=== PATIENT | male | born 1970 | race African-American/Black ===

== ENCOUNTER 2022-08-26 19:54 | Inpatient (IN) | payer OTHER ==
[2022-08-26 20:33] LABS: #Eosinphils 0.1 thou/uL (0.0-0.7); #Lymphocytes 1.7 thou/uL (1.20-3.40); #Monocytes 0.5 thou/uL (0.11-0.59); #Neutrophils 4.7 thou/uL (1.40-6.50); %Basophils 0.6 % (0.0-1.0); %Eosinophils 1.4 % (0.0-10.0); %Lymphocytes 24.5 % (21.0-51.0); %Monocytes 6.5 % (0.0-10.0); %Neutrophils 66.9 % (42.0-75.0); Hemoglobin 14.8 g/dL (14.0-18.0); Mean Corpuscular HGB CONC 35.5 g/dL (32.0-36.0); Mean Corpuscular Hemoglobin 29.2 pg (27.0-31.0); Mean Corpuscular Volume 82.5 fl (78.0-98.0); Mean Platelet Volume 7.6 fL (7.4-10.4); Platelet Count 250 10x3/uL (130-400); RBC Distribution Width 13.7 % (11.5-14.5); Red Blood Cell (RBC) Count 5.06 mill/uL (4.70-6.10); White Blood Cell (WBC) Count 7.1 10x3/uL (4.8-10.8)
[2022-08-26 20:59] LABS: ALT (SGPT) 30 U/L (8-55); AST (SGOT) 34 U/L (5-34); Albumin 3.7 g/dL (3.5-5.0); Alkaline Phosphatase 147 U/L (40-110); Anion Gap 15 mmol/L (10-20); BUN (Urea Nitrogen) 18 mg/dL (8.4-25.7); Bilirubin, Total 0.3 mg/dL (0.2-1.2); CK (CPK) 275 U/L (30-200); Calc. Creatinine Clearance 0 mL/min (70-130); Calcium 8.6 mg/dL (7.8-10.44); Carbon Dioxide 22 mmol/L (22-29); Chloride 105 mmol/L (98-107); Estimated GFR 50; Globulin 3.6 g/dL (2.4-3.5); Glucose 223 mg/dL (70-105); Potassium 3.9 mmol/L (3.5-5.1); Protein, Total 7.3 g/dL (6.0-8.3); Sodium 138 mmol/L (136-145)
[2022-08-26] MEDS ORDERED: hydrALAZINE 20 MG/ML VIAL ONE (21:07)
[2022-08-26 21:18] LABS: CKMB 4.6 ng/mL (0-6.6)
[2022-08-26] MEDS ORDERED: Labetalol HCl 100 MG/20 ML VIAL ONE (22:01)
[2022-08-26] MEDS ORDERED: niCARdipine 25 MG/10 ML SDV ONE (22:42)
[2022-08-26 22:51] LABS: SARS-CoV-2 NAA Rapid Test Not Detected (NotDetected)
[2022-08-26] MEDS ORDERED: Nitroglycerin 0.4 MG TAB (25 Tab Bottle) SL PRN (22:55)
[2022-08-26] MEDS ORDERED: Calcium Carbonate 500 MG ChewTAB PO PRN (22:56)
[2022-08-26] MEDS ORDERED: Senokot S 8.6-50 MG TAB PO PRN (22:56)
[2022-08-26] MEDS ORDERED: Aspirin 325 mg Enteric Coated Tablet PO SCH (23:00)
[2022-08-26] MEDS ORDERED: Dextrose 50% Abboject 50 ML SYRINGE SLOW IVP PRN (23:00)
[2022-08-26] MEDS ORDERED: Dextrose 5% in Water 1,000 ML IV PRN (23:00)
[2022-08-26] MEDS ORDERED: Lactated Ringer's 500 ML IV SCH (23:15)
[2022-08-26 23:35] LABS: Hemoglobin A1c 7.4 % (4.0-6.0)
[2022-08-27] MEDS ORDERED: niCARdipine 50 MG in Sodium Chloride 0.9% 250 ML 230 ML IV SCH (01:30)
[2022-08-27] MEDS: Acetaminophen 325 MG TAB PO PRN ×3 (01:37→20:56)
[2022-08-27] MEDS ORDERED: Electrolyte Replacement Protocol 1 EACH FS PRN (01:45)
[2022-08-27 01:50] LABS: Troponin I 0.062 ng/mL (< 0.028)
[2022-08-27] MEDS ORDERED: Enoxaparin 120 MG/0.8 ML SYRINGE SC SCH (02:00)
[2022-08-27] MEDS: Ondansetron ODT 4 MG TAB PO PRN (02:01)
[2022-08-27 03:55] LABS: #Eosinphils 0.1 thou/uL (0.0-0.7); #Lymphocytes 1.6 thou/uL (1.20-3.40); #Monocytes 0.5 thou/uL (0.11-0.59); #Neutrophils 5.8 thou/uL (1.40-6.50); %Basophils 0.2 % (0.0-1.0); %Eosinophils 1.6 % (0.0-10.0); %Lymphocytes 19.6 % (21.0-51.0); %Monocytes 6.5 % (0.0-10.0); %Neutrophils 72.2 % (42.0-75.0); Hemoglobin 14.5 g/dL (14.0-18.0); Mean Corpuscular HGB CONC 34.4 g/dL (32.0-36.0); Mean Corpuscular Hemoglobin 28.3 pg (27.0-31.0); Mean Corpuscular Volume 82.2 fl (78.0-98.0); Platelet Count 246 10x3/uL (130-400); RBC Distribution Width 13.7 % (11.5-14.5); Red Blood Cell (RBC) Count 5.13 mill/uL (4.70-6.10)
[2022-08-27 04:20] LABS: Troponin I 0.066 ng/mL (< 0.028)
[2022-08-27 04:21] LABS: Anion Gap 13 mmol/L (10-20); BUN (Urea Nitrogen) 14 mg/dL (8.4-25.7); Calc. Creatinine Clearance 85 mL/min (70-130); Calcium 9.1 mg/dL (7.8-10.44); Carbon Dioxide 26 mmol/L (22-29); Cardiac Risk 4.9 (Less than 4.5); Chloride 104 mmol/L (98-107); Cholesterol 122 mg/dl (< 200 Desired); Estimated GFR 55; Glucose 205 mg/dL (70-105); HDL Cholesterol 25 mg/dL (>60 Neg Risk); LDL Cholesterol, Calculated 66 mg/dL; Potassium 2.8 mmol/L (3.5-5.1); Sodium 140 mmol/L (136-145); Triglycerides 153 mg/dL (Less than 150)
[2022-08-27] MEDS: Potassium Chloride 20 MEQ TAB PO SCH ×2 (06:24→11:26)
[2022-08-27] MEDS: HumaLOG 300 UNITS/3 ML VIAL SC PRN ×2 (06:24→11:25)
[2022-08-27] MEDS: Carvedilol 25 MG TAB PO SCH ×2 (08:00→16:27)
[2022-08-27] MEDS: Famotidine 20 MG TAB PO SCH ×2 (08:01→20:57)
[2022-08-27] MEDS: Ezetimibe 10 MG TAB PO SCH (08:02)
[2022-08-27] MEDS: Clopidogrel Bisulfate 75 MG TAB PO SCH (08:02)
[2022-08-27] MEDS: Heparin 5,000 UNITS/ML VIAL SC SCH ×3 (08:05→20:57)
[2022-08-27] MEDS ORDERED: Amlodipine 10 MG TAB PO SCH (09:45)
[2022-08-27] MEDS ORDERED: Lisinopril 20 MG TAB PO SCH (13:30)
[2022-08-27] MEDS: Labetalol HCl 100 MG/20 ML VIAL SLOW IVP PRN ×2 (14:25→14:48)
[2022-08-27] MEDS: hydrALAZINE 25 MG TAB PO SCH ×2 (14:36→20:56)
[2022-08-27 15:20] LABS: Potassium 3.6 mmol/L (3.5-5.1)
[2022-08-27] MEDS: NIFEdipine XL 60 MG TAB PO SCH (20:53)
[2022-08-27] MEDS: Furosemide 40 MG TAB PO SCH (20:56)
[2022-08-27] MEDS: Atorvastatin Calcium 40 MG TAB PO SCH (20:56)
[2022-08-27 21:58] LABS: Troponin I 0.056 ng/mL (< 0.028)
[2022-08-28 07:11] LABS: #Eosinphils 0.1 thou/uL (0.0-0.7); #Monocytes 0.6 thou/uL (0.11-0.59); #Neutrophils 5.9 thou/uL (1.40-6.50); %Basophils 0.4 % (0.0-1.0); %Eosinophils 1.4 % (0.0-10.0); %Lymphocytes 23.4 % (21.0-51.0); %Monocytes 6.8 % (0.0-10.0); Hemoglobin 14.1 g/dL (14.0-18.0); Mean Corpuscular HGB CONC 32.7 g/dL (32.0-36.0); Mean Corpuscular Hemoglobin 27.1 pg (27.0-31.0); Mean Corpuscular Volume 82.8 fl (78.0-98.0); Mean Platelet Volume 7.4 fL (7.4-10.4); Platelet Count 271 10x3/uL (130-400); RBC Distribution Width 13.7 % (11.5-14.5); Red Blood Cell (RBC) Count 5.19 mill/uL (4.70-6.10); White Blood Cell (WBC) Count 8.7 10x3/uL (4.8-10.8)
[2022-08-28 07:32] LABS: Anion Gap 13 mmol/L (10-20); BUN (Urea Nitrogen) 15 mg/dL (8.4-25.7); Calc. Creatinine Clearance 76 mL/min (70-130); Carbon Dioxide 24 mmol/L (22-29); Chloride 106 mmol/L (98-107); Estimated GFR 50; Glucose 129 mg/dL (70-105); Sodium 140 mmol/L (136-145)
[2022-08-28] MEDS ORDERED: Potassium Chloride 20 MEQ TAB PO SCH ×3 (08:00→18:00)
[2022-08-28] MEDS: Acetaminophen 325 MG TAB PO PRN (08:52)
[2022-08-28] MEDS: hydrALAZINE 25 MG TAB PO SCH ×3 (08:53→21:17)
[2022-08-28] MEDS: Ezetimibe 10 MG TAB PO SCH (08:53)
[2022-08-28] MEDS: Famotidine 20 MG TAB PO SCH ×2 (08:53→21:18)
[2022-08-28] MEDS: NIFEdipine XL 60 MG TAB PO SCH ×2 (08:53→21:17)
[2022-08-28] MEDS: Carvedilol 25 MG TAB PO SCH ×2 (08:54→16:29)
[2022-08-28] MEDS: Clopidogrel Bisulfate 75 MG TAB PO SCH (08:54)
[2022-08-28] MEDS: Heparin 5,000 UNITS/ML VIAL SC SCH ×3 (08:54→21:18)
[2022-08-28] MEDS: Lisinopril 20 MG TAB PO SCH (08:54)
[2022-08-28] MEDS: Furosemide 40 MG TAB PO SCH ×2 (08:54→21:18)
[2022-08-28] MEDS ORDERED: Amlodipine 10 MG TAB PO SCH (09:00)
[2022-08-28] MEDS: HumaLOG 300 UNITS/3 ML VIAL SC PRN (12:46)
[2022-08-28] MEDS ORDERED: Aspirin 81 mg Enteric Coated Tablet PO SCH (19:00)
[2022-08-28 19:02] LABS: Bacteria/HPF None Seen HPF (None Seen); Bilirubin Negative (Negative); Blood, Urine Negative (Negative); Clarity Clear (Clear); Glucose, Urine (Dipstick) Normal (Negative); Ketone, Urine Negative (Negative); Leukocyte Negative Leu/uL (Negative); Nitrite Negative (Negative); Protein, Urine (Dipstick) 70 mg/dL (Neg-Trace); RBC/HPF 0-3 HPF (0-3); Specific Gravity, Urine 1.017 (1.002-1.036); Squamous Epithelial 0-3 HPF (0-3); Urobilinogen Normal mg/dL (Less than 2); WBC/HPF 0-3 HPF (0-3); pH, Urine 5.5 (5.0-9.0)
[2022-08-28] MEDS: Amoxicillin/Potassium Clav 875 MG TAB PO SCH (21:17)
[2022-08-28] MEDS: Doxycycline 100 MG CAP PO SCH (21:18)
[2022-08-28] MEDS: Atorvastatin Calcium 40 MG TAB PO SCH (21:18)
[2022-08-29 07:38] LABS: #Eosinphils 0.1 thou/uL (0.0-0.7); #Monocytes 0.5 thou/uL (0.11-0.59); #Neutrophils 4.2 thou/uL (1.40-6.50); %Basophils 0.4 % (0.0-1.0); %Eosinophils 2.1 % (0.0-10.0); %Monocytes 7.1 % (0.0-10.0); %Neutrophils 61.4 % (42.0-75.0); Hemoglobin 13.8 g/dL (14.0-18.0); Mean Corpuscular Hemoglobin 28.1 pg (27.0-31.0); Mean Corpuscular Volume 82.7 fl (78.0-98.0); Mean Platelet Volume 7.5 fL (7.4-10.4); Platelet Count 239 10x3/uL (130-400); RBC Distribution Width 13.6 % (11.5-14.5); White Blood Cell (WBC) Count 6.8 10x3/uL (4.8-10.8)
[2022-08-29 08:02] LABS: Anion Gap 11 mmol/L (10-20); BUN (Urea Nitrogen) 17 mg/dL (8.4-25.7); Calc. Creatinine Clearance 70 mL/min (70-130); Calcium 8.7 mg/dL (7.8-10.44); Carbon Dioxide 26 mmol/L (22-29); Chloride 107 mmol/L (98-107); Estimated GFR 45; Glucose 116 mg/dL (70-105); Potassium 3.3 mmol/L (3.5-5.1); Sodium 141 mmol/L (136-145)
[2022-08-29] MEDS ORDERED: Potassium Chloride 20 MEQ TAB PO SCH (08:15)
[2022-08-29] MEDS: Furosemide 40 MG TAB PO SCH ×2 (12:03→20:05)
[2022-08-29] MEDS: Carvedilol 25 MG TAB PO SCH ×2 (12:04→16:14)
[2022-08-29] MEDS: Lisinopril 20 MG TAB PO SCH (12:04)
[2022-08-29] MEDS: Aspirin 81 mg Enteric Coated Tablet PO SCH (12:04)
[2022-08-29] MEDS: hydrALAZINE 25 MG TAB PO SCH ×3 (12:06→20:04)
[2022-08-29] MEDS: Ezetimibe 10 MG TAB PO SCH (12:07)
[2022-08-29] MEDS: Doxycycline 100 MG CAP PO SCH ×2 (12:07→20:05)
[2022-08-29] MEDS: Famotidine 20 MG TAB PO SCH ×2 (12:07→20:05)
[2022-08-29] MEDS: NIFEdipine XL 60 MG TAB PO SCH ×2 (12:07→20:05)
[2022-08-29] MEDS: Clopidogrel Bisulfate 75 MG TAB PO SCH (12:07)
[2022-08-29] MEDS: Heparin 5,000 UNITS/ML VIAL SC SCH ×3 (12:08→20:05)
[2022-08-29] MEDS: Amoxicillin/Potassium Clav 875 MG TAB PO SCH ×2 (12:08→20:04)
[2022-08-29] MEDS: Atorvastatin Calcium 40 MG TAB PO SCH (20:04)
[2022-08-30] MEDS ORDERED: Acetaminophen 500 MG TAB PO SCH (03:45)
[2022-08-30] MEDS ORDERED: traMADol HCl 50 MG TAB PO PRN (03:56)
[2022-08-30 04:06] VITALS: BMI 35.4
[2022-08-30 07:10] LABS: #Eosinphils 0.2 thou/uL (0.0-0.7); #Lymphocytes 1.9 thou/uL (1.20-3.40); #Monocytes 0.4 thou/uL (0.11-0.59); #Neutrophils 4.3 thou/uL (1.40-6.50); %Basophils 0.2 % (0.0-1.0); %Eosinophils 2.3 % (0.0-10.0); %Lymphocytes 28.3 % (21.0-51.0); %Monocytes 6.2 % (0.0-10.0); %Neutrophils 63.1 % (42.0-75.0); Hemoglobin 13.5 g/dL (14.0-18.0); Mean Corpuscular HGB CONC 32.6 g/dL (32.0-36.0); Mean Corpuscular Hemoglobin 27.2 pg (27.0-31.0); Mean Corpuscular Volume 83.3 fl (78.0-98.0); Mean Platelet Volume 7.4 fL (7.4-10.4); Platelet Count 259 10x3/uL (130-400); RBC Distribution Width 13.3 % (11.5-14.5); Red Blood Cell (RBC) Count 4.96 mill/uL (4.70-6.10); White Blood Cell (WBC) Count 6.8 10x3/uL (4.8-10.8)
[2022-08-30 07:34] LABS: Anion Gap 13 mmol/L (10-20); BUN (Urea Nitrogen) 21 mg/dL (8.4-25.7); Calc. Creatinine Clearance 62 mL/min (70-130); Carbon Dioxide 24 mmol/L (22-29); Chloride 108 mmol/L (98-107); Estimated GFR 39; Glucose 141 mg/dL (70-105); Potassium 3.5 mmol/L (3.5-5.1); Sodium 141 mmol/L (136-145)
[2022-08-30] MEDS: Aspirin 81 mg Enteric Coated Tablet PO SCH (08:22)
[2022-08-30] MEDS: Ezetimibe 10 MG TAB PO SCH (08:22)
[2022-08-30] MEDS: Famotidine 20 MG TAB PO SCH ×2 (08:22→20:13)
[2022-08-30] MEDS: hydrALAZINE 25 MG TAB PO SCH ×3 (08:22→20:12)
[2022-08-30] MEDS: Furosemide 40 MG TAB PO SCH (08:22)
[2022-08-30] MEDS: Doxycycline 100 MG CAP PO SCH ×2 (08:22→20:12)
[2022-08-30] MEDS: Heparin 5,000 UNITS/ML VIAL SC SCH ×3 (08:23→20:14)
[2022-08-30] MEDS: Clopidogrel Bisulfate 75 MG TAB PO SCH (08:23)
[2022-08-30] MEDS: Amoxicillin/Potassium Clav 875 MG TAB PO SCH ×2 (08:23→20:13)
[2022-08-30] MEDS: NIFEdipine XL 60 MG TAB PO SCH ×2 (08:23→20:13)
[2022-08-30] MEDS ORDERED: Potassium Bicarbonate/Cit Ac 20 MEQ TAB PO SCH (10:15)
[2022-08-30] MEDS: Carvedilol 25 MG TAB PO SCH ×2 (10:59→17:46)
[2022-08-30] MEDS: HumaLOG 300 UNITS/3 ML VIAL SC PRN (13:04)
[2022-08-30] MEDS: Atorvastatin Calcium 40 MG TAB PO SCH (20:11)
[2022-08-31 07:17] LABS: #Eosinphils 0.1 thou/uL (0.0-0.7); #Lymphocytes 1.8 thou/uL (1.20-3.40); #Monocytes 0.5 thou/uL (0.11-0.59); #Neutrophils 4.2 thou/uL (1.40-6.50); %Basophils 0.4 % (0.0-1.0); %Eosinophils 2.1 % (0.0-10.0); %Lymphocytes 27.3 % (21.0-51.0); %Neutrophils 63.2 % (42.0-75.0); Hemoglobin 13.6 g/dL (14.0-18.0); Mean Corpuscular Hemoglobin 28.2 pg (27.0-31.0); Mean Corpuscular Volume 82.8 fl (78.0-98.0); Mean Platelet Volume 7.5 fL (7.4-10.4); Platelet Count 233 10x3/uL (130-400); RBC Distribution Width 13.5 % (11.5-14.5); Red Blood Cell (RBC) Count 4.82 mill/uL (4.70-6.10); White Blood Cell (WBC) Count 6.7 10x3/uL (4.8-10.8)
[2022-08-31 07:27] LABS: Anion Gap 15 mmol/L (10-20); BUN (Urea Nitrogen) 23 mg/dL (8.4-25.7); Calc. Creatinine Clearance 65 mL/min (70-130); Carbon Dioxide 23 mmol/L (22-29); Chloride 108 mmol/L (98-107); Estimated GFR 41; Glucose 122 mg/dL (70-105); Potassium 3.8 mmol/L (3.5-5.1); Sodium 142 mmol/L (136-145)
[2022-08-31] MEDS: Furosemide 40 MG TAB PO SCH (07:50)
[2022-08-31] MEDS: Ezetimibe 10 MG TAB PO SCH (07:50)
[2022-08-31] MEDS: Famotidine 20 MG TAB PO SCH ×2 (07:50→20:21)
[2022-08-31] MEDS: Clopidogrel Bisulfate 75 MG TAB PO SCH (07:50)
[2022-08-31] MEDS: Heparin 5,000 UNITS/ML VIAL SC SCH ×3 (07:50→20:22)
[2022-08-31] MEDS: Aspirin 81 mg Enteric Coated Tablet PO SCH (07:50)
[2022-08-31] MEDS: hydrALAZINE 25 MG TAB PO SCH ×3 (07:51→20:21)
[2022-08-31] MEDS: NIFEdipine XL 60 MG TAB PO SCH ×2 (07:51→20:21)
[2022-08-31] MEDS: Doxycycline 100 MG CAP PO SCH ×2 (09:10→20:20)
[2022-08-31] MEDS: Carvedilol 25 MG TAB PO SCH ×2 (09:10→17:20)
[2022-08-31] MEDS: Amoxicillin/Potassium Clav 875 MG TAB PO SCH ×2 (09:10→20:20)
[2022-08-31] MEDS ORDERED: Fentanyl 250 MCG/5 ML VIAL ONE (13:26)
[2022-08-31] MEDS ORDERED: Acetaminophen 500 MG TAB PO PRN (13:47)
[2022-08-31] MEDS ORDERED: Lidocaine 1% PF 5 ML VIAL ONE (13:49)
[2022-08-31] MEDS ORDERED: Ondansetron PF 4 MG/2 ML Vial ONE (13:49)
[2022-08-31] MEDS ORDERED: NEOSTIGMINE 3 MG/3 ML SYR 3 MG/3 ML SYRINGE ONE (13:49)
[2022-08-31] MEDS ORDERED: Rocuronium Bromide 10 MG/ML (10ML VIAL) ONE (13:49)
[2022-08-31] MEDS ORDERED: PROPOFOL 200 MG/20 ML VIAL ONE (13:49)
[2022-08-31] MEDS ORDERED: GLYCOPYRROLATE/PF 0.2 MG/ML VIAL ONE (13:49)
[2022-08-31] MEDS ORDERED: Acetaminophen 500 MG TAB PO SCH (14:00)
[2022-08-31] MEDS ORDERED: Bupivacaine HCl 0.5%/Epinephrine 1:200,000/PF 30 ml Vial ONE (14:11)
[2022-08-31] MEDS ORDERED: Promethazine HCl 25 MG/ML VIAL IM PRN (14:50)
[2022-08-31] MEDS ORDERED: Ondansetron HCl/PF 4 MG/2 ML Vial IVP PRN (14:50)
[2022-08-31] MEDS: traMADol HCl 50 MG TAB PO PRN ×2 (17:20→23:42)
[2022-08-31] MEDS: Ondansetron ODT 4 MG TAB PO PRN (20:19)
[2022-08-31] MEDS: Atorvastatin Calcium 40 MG TAB PO SCH (20:20)
[2022-08-31] MEDS: Ibuprofen 200 MG TAB PO PRN (20:23)
[2022-09-01] MEDS: Ibuprofen 200 MG TAB PO PRN (06:19)
[2022-09-01] MEDS: Furosemide 40 MG TAB PO SCH (06:30)
[2022-09-01] MEDS: Carvedilol 25 MG TAB PO SCH ×2 (06:30→16:28)
[2022-09-01 08:20] LABS: #Eosinphils 0.1 thou/uL (0.0-0.7); #Lymphocytes 2.3 thou/uL (1.20-3.40); #Monocytes 0.5 thou/uL (0.11-0.59); #Neutrophils 3.5 thou/uL (1.40-6.50); %Basophils 0.1 % (0.0-1.0); %Eosinophils 2.3 % (0.0-10.0); %Monocytes 8.1 % (0.0-10.0); %Neutrophils 54.4 % (42.0-75.0); Hemoglobin 14.6 g/dL (14.0-18.0); Mean Corpuscular HGB CONC 34.1 g/dL (32.0-36.0); Mean Corpuscular Hemoglobin 28.7 pg (27.0-31.0); Mean Platelet Volume 7.4 fL (7.4-10.4); Platelet Count 246 10x3/uL (130-400); RBC Distribution Width 13.7 % (11.5-14.5); White Blood Cell (WBC) Count 6.4 10x3/uL (4.8-10.8)
[2022-09-01] MEDS: Clopidogrel Bisulfate 75 MG TAB PO SCH (08:26)
[2022-09-01] MEDS: Ezetimibe 10 MG TAB PO SCH (08:26)
[2022-09-01] MEDS: Aspirin 81 mg Enteric Coated Tablet PO SCH (08:26)
[2022-09-01] MEDS: Polyethylene Glycol 3350 17 GM Packet PO SCH (08:26)
[2022-09-01] MEDS: hydrALAZINE 25 MG TAB PO SCH ×3 (08:27→20:46)
[2022-09-01] MEDS: Famotidine 20 MG TAB PO SCH ×2 (08:27→20:46)
[2022-09-01] MEDS: Amoxicillin/Potassium Clav 875 MG TAB PO SCH (08:29)
[2022-09-01] MEDS: Heparin 5,000 UNITS/ML VIAL SC SCH ×3 (08:29→20:46)
[2022-09-01] MEDS: NIFEdipine XL 60 MG TAB PO SCH ×2 (08:29→20:45)
[2022-09-01] MEDS: Ondansetron ODT 4 MG TAB PO PRN ×2 (08:36→18:59)
[2022-09-01] MEDS: Doxycycline 100 MG CAP PO SCH ×2 (08:36→20:46)
[2022-09-01 08:43] LABS: Anion Gap 16 mmol/L (10-20); BUN (Urea Nitrogen) 23 mg/dL (8.4-25.7); Calc. Creatinine Clearance 67 mL/min (70-130); Calcium 9.1 mg/dL (7.8-10.44); Carbon Dioxide 22 mmol/L (22-29); Chloride 107 mmol/L (98-107); Estimated GFR 43; Glucose 102 mg/dL (70-105); Potassium 3.8 mmol/L (3.5-5.1); Sodium 141 mmol/L (136-145)
[2022-09-01] MEDS ORDERED: hydrALAZINE 25 MG TAB PO SCH (09:15)
[2022-09-01] MEDS ORDERED: Ibuprofen 600 MG TAB PO PRN (09:58)
[2022-09-01] MEDS: traMADol HCl 50 MG TAB PO PRN ×2 (10:11→20:49)
[2022-09-01] MEDS: Amoxicillin/Potassium Clav 500 MG TAB PO SCH (20:45)
[2022-09-01] MEDS: Atorvastatin Calcium 40 MG TAB PO SCH (20:46)
[2022-09-01] MEDS: Lisinopril 5 MG TAB PO SCH (20:47)
[2022-09-02] MEDS: traMADol HCl 50 MG TAB PO PRN (05:16)
[2022-09-02 08:42] VITALS: BP 146/87; TEMP 97.9
[2022-09-02] MEDS: hydrALAZINE 25 MG TAB PO SCH (08:43)
[2022-09-02] MEDS: Amoxicillin/Potassium Clav 500 MG TAB PO SCH (08:43)
[2022-09-02] MEDS: Ezetimibe 10 MG TAB PO SCH (08:43)
[2022-09-02] MEDS: Carvedilol 25 MG TAB PO SCH (08:43)
[2022-09-02] MEDS: Doxycycline 100 MG CAP PO SCH (08:43)
[2022-09-02] MEDS: Heparin 5,000 UNITS/ML VIAL SC SCH (08:44)
[2022-09-02] MEDS: Aspirin 81 mg Enteric Coated Tablet PO SCH (08:44)
[2022-09-02] MEDS: Clopidogrel Bisulfate 75 MG TAB PO SCH (08:44)
[2022-09-02] MEDS: Lisinopril 5 MG TAB PO SCH (08:44)
[2022-09-02] MEDS: NIFEdipine XL 60 MG TAB PO SCH (08:44)
[2022-09-02] MEDS: Polyethylene Glycol 3350 17 GM Packet PO SCH (08:44)
[2022-09-02] MEDS: Furosemide 40 MG TAB PO SCH (08:44)
[2022-09-02] MEDS: Famotidine 20 MG TAB PO SCH (08:44)
== END 2022-09-02 09:27 | DRG 303 ==
LOC: EDBD 19:54 → ERS 19:54 → CCU 22:45 → EEVIPCON 22:45 → T4-A 08-27 20:05
PROVIDERS: ADMIT Student in an Organized Health Care Education/Training Program; ATTEND Internal Medicine
PROC: 0J950ZZ Drainage of Left Neck Subcutaneous Tissue and Fascia, Open Approach (ICD-10-PCS; principal; 2022-08-31)
DX: I25.10 Atherosclerotic heart disease of native coronary artery without angina pectoris (principal); I16.1 Hypertensive emergency; I25.110 Atherosclerotic heart disease of native coronary artery with unstable angina pectoris; N17.9 Acute kidney failure, unspecified; L02.11 Cutaneous abscess of neck; L02.411 Cutaneous abscess of right axilla; E78.5 Hyperlipidemia, unspecified; I12.9 Hypertensive chronic kidney disease with stage 1 through stage 4 chronic kidney disease, or unspecified chronic kidney disease; E11.22 Type 2 diabetes mellitus with diabetic chronic kidney disease; N18.30 Chronic kidney disease, stage 3 unspecified; E78.00 Pure hypercholesterolemia, unspecified; E87.6 Hypokalemia; Z95.5 Presence of coronary angioplasty implant and graft; I25.2 Old myocardial infarction
CPT/HCPCS: 36415; 36416; 71045; 76705; 76770; 78452; 80048; 80053; 80061; 81001; 82550; 82553; 83036; 84484; 85025; 87070; 87205; 93005; 93010; 93017; 93306; 94760; 96365; 96375; 97139; A9500; J0360; J1644; J1650; J1815; J2405; J2704; J3010; J3490; J7050; Q0162; U0002